=== PATIENT | female | born 1995 | race African-American/Black ===

== ENCOUNTER 2023-04-16 12:46 | Observation (INO) | payer OTHER ==
[~2023-04-16] VITALS: Ht 175.3 cm; Wt 99.1 kg
[2023-04-16 12:55] VITALS: BP 133/79
== END 2023-04-16 14:34 | disposition home or self-care (01) ==
LOC: ER 12:46 → LDRP 13:16
PROVIDERS: ADMIT Obstetrics & Gynecology; ATTEND Obstetrics & Gynecology
DX: O62.9 Abnormality of forces of labor, unspecified (principal); O99.013 Anemia complicating pregnancy, third trimester; O26.893 Other specified pregnancy related conditions, third trimester; R10.2 Pelvic and perineal pain; Z3A.38 38 weeks gestation of pregnancy
CPT/HCPCS: 59025; 81002; 94760; G0378